=== PATIENT | female | born 1970 | race African-American/Black ===

== ENCOUNTER 2024-04-26 04:24 | Emergency (ER) | payer OTHER ==
[2024-04-26 04:56] LABS: BASO % 0.3 % (0.0-1.0); EOS # 0.2 10*3/uL (0.0-0.7); EOS % 2.9 % (0.0-2.0); HEMATOCRIT 43.6 % (45.0-61.0); LYMPH # 3.9 10*3/uL (1.7-13.0); LYMPH % 48.9 % (19.0-37.0); MEAN CELL VOLUME 87.7 fl (95.0-115.0); MEAN CORPUSCULAR HGB 29.2 pg (31.7-37.0); MEAN CORPUSCULAR HGB CONC 33.3 g/dl (29.0-37.0); MEAN PLATELET VOLUME 11.6 fl (6.5-10.5); MONO # 0.9 10*3/uL (0.5-2.5); NEUT # 2.9 10*3/uL (3.8-28.0); NEUT % 36.6 % (42.0-80.0); PLATELET COUNT AUTOMATED 182 10*3/uL (250-450); RED BLOOD COUNT 4.97 10*6/uL (4.00-5.90); RED CELL DISTRI WIDTH 13.7 % (0-18.0); WHITE BLOOD COUNT 7.9 10*3/uL (9.0-35.0)
[2024-04-26 05:20] LABS: ALKALINE PHOSPHATASE 102 U/L; BUN 16 mg/dl (9-23); CHLORIDE 106 mmol/L (98-107); POTASSIUM 4.1 mmol/L (3.4-5.1); SGPT/ALT 16 U/L (5-49); TOTAL PROTEIN 8.5 gm/dL (6.0-8.0)
[2024-04-26 05:21] LABS: ETHYL ALCOHOL < 3.0 mg/dl (<3)
[2024-04-26 08:11] LABS: BILIRUBIN Negative (Negative); BLOOD Negative (Negative); CLARITY Clear (Clear); COLOR Yellow (Yellow); GLUCOSE Negative (Negative); KETONE Negative (Negative); LEUKO ESTERASE Negative (Negative); NITRITE Negative (Negative); PH 5.5 (4.5-8.0); SPECIFIC GRAVITY >= 1.030 (1.001-1.030); UROBILINOGEN 0.2 E.U./dl (0.0-1.0)
[2024-04-26 08:17] LABS: URINE AMPHETAMINES Negative (1000ng/ml); URINE BARBITURATES Negative (200ng/ml); URINE BENZODIAZEPINES Negative (200ng/ml); URINE CANNABINOIDS (THC) Negative (50ng/ml); URINE COCAINE Negative (300ng/ml); URINE METHADONE Negative (300ng/ml); URINE OPIATES Negative (300ng/ml); URINE PHENCYCLIDINE Negative (25ng/ml)
[2024-04-26 08:27] LABS: BACTERIA 3+; CALCIUM OXALATE CRYSTALS 2+; MUCOUS 1+
[2024-04-26] MEDS ORDERED: ACETAMINOPHEN 325 MG TAB PO ONE (15:55)
[2024-04-26] MEDS ORDERED: IBUPROFEN 600 MG TAB PO ONE (16:05)
== END 2024-04-26 20:45 | disposition short-term general hospital (02) ==
LOC: ED 04:24 → EDBD 04:34 → ED 20:45
PROVIDERS: Internal Medicine
DX: F43.21 Adjustment disorder with depressed mood (principal); Z79.899 Other long term (current) drug therapy